=== PATIENT | male | born 1995 | race Two or more races ===

== ENCOUNTER 2021-02-14 23:46 | Emergency (ER) | payer OTHER ==
[~2021-02-14] VITALS: Ht 177.8 cm; Wt 108.9 kg
== END 2021-02-15 | disposition home or self-care (01) ==
LOC: ER 23:46 → EDBD 23:46 → ER 02-15 00:48
DX: S00.81XA Abrasion of other part of head, initial encounter (principal); W18.39XA Other fall on same level, initial encounter; Y93.9 Activity, unspecified; Y92.018 Other place in single-family (private) house as the place of occurrence of the external cause